=== PATIENT | male | born 2000 | race Caucasian/White ===

== ENCOUNTER 2023-06-23 11:14 | Emergency (ER) | payer BC, OTHER | END 2023-06-23 13:03 | disposition home or self-care (01) | LOC: MW.ED 11:14 | DX: S09.90XA Unspecified injury of head, initial encounter (principal); S16.1XXA Strain of muscle, fascia and tendon at neck level, initial encounter; V47.5XXA Car driver injured in collision with fixed or stationary object in traffic accident, initial encounter | CPT/HCPCS: 70450; 70450-26; 72125; 72125-26; 99282; 99284 ==

== ENCOUNTER 2023-11-19 20:57 | Emergency (ER) | payer BC, OTHER ==
[2023-11-19] MEDS ORDERED: Sodium Chloride 0.9% 2.5 ML Syringe FLUSH PRN (21:04)
[2023-11-19] MEDS ORDERED: Sodium Chloride 0.9% 10 ML Syringe FLUSH PRN (21:04)
[2023-11-19 21:22] LABS: BASOPHILS ABSOLUTE AUTO 0.05 K/uL (0.00-0.20); BASOPHILS PERCENT AUTO 0.6 % (0.0-1.0); EOSINOPHILS ABSOLUTE AUTO 0.29 K/uL (0.00-0.45); EOSINOPHILS PERCENT AUTO 3.4 % (0.0-6.0); HEMATOCRIT 42.7 % (42.0-52.0); HEMOGLOBIN 15.1 g/dL (14.0-18.0); IMMATURE GRAN ABSOLUTE AUTO 0.02 K/uL (0.00-0.05); IMMATURE GRAN PERCENT AUTO 0.2 % (0.0-0.4); LYMPHOCYTES ABSOLUTE AUTO 3.21 K/uL (1.00-4.80); LYMPHOCYTES PERCENT AUTO 37.1 % (24.0-44.0); MEAN CORPUSCULAR HGB CONC 35.4 g/dL (32.0-36.0); MEAN CORPUSCULAR VOLUME 82.1 fL (83.0-99.0); MEAN PLATELET VOLUME 9.5 fL (9.4-12.4); MONOCYTES ABSOLUTE AUTO 0.57 K/uL (0.00-0.80); MONOCYTES PERCENT AUTO 6.6 % (0.0-8.0); NEUTROPHILS ABSOLUTE AUTO 4.51 K/uL (1.80-7.70); NEUTROPHILS PERCENT AUTO 52.1 % (41.0-71.0); PLATELET COUNT,PLT 307 K/uL (150-400); WHITE BLOOD CELL COUNT,WBC 8.65 K/uL (3.9-11.3)
[2023-11-19] MEDS: Iopamidol 755 MG/ML 500 ML Multipack Bottle IVPUSH ONE (21:30)
[2023-11-19 21:36] LABS: INR 1.05 (0.86-1.11); PTT,PARTIAL THROMBOPLSTIN TIME 26.5 SEC (23.9-30.7)
[2023-11-19] MEDS: Acetaminophen 500 MG Tab PO ONE (21:39)
[2023-11-19 21:52] LABS: A/G RATIO 1.4 (0.9-1.6); ALANINE AMINOTRANSFERASE,ALT 28 IU/L (14-63); ALBUMIN 4.6 g/dL (3.4-5.0); ALKALINE PHOSPHATASE 99 U/L (46-116); ASPARTATE AMNIOTRANSFERASE,AST 30 IU/L (15-37); BILIRUBIN TOTAL 0.5 mg/dL (0.2-1.0); BLOOD UREA NITROGEN,BUN 16 mg/dL (7.0-18.0); CALCIUM 9.1 mg/dL (8.5-10.1); CARBON DIOXIDE,CO2 27.6 mmol/L (21.0-32.0); CHLORIDE,CL 104 mmol/L (98-107); CREATININE 1.1 mg/dL (0.8-1.3); EST CRCL DRUG DOSING (CG) 113.14 mL/min; ESTIMATED GFR 98 mL/min (>60); ETHANOL BLOOD MEDICAL <3 mg/dL; GLUCOSE RANDOM 91 mg/dL (74-106); POTASSIUM,K 3.8 mmol/L (3.5-5.1); PROTEIN TOTAL,TP 7.9 g/dL (6.4-8.2); SODIUM,NA 142 mmol/L (136-148)
[2023-11-19 22:19] LABS: APPEARANCE,URINE CLEAR; BILIRUBIN,URINE NEGATIVE (NEGATIVE); COLOR,URINE YELLOW; GLUCOSE,URINE NEGATIVE (NEGATIVE); KETONES,URINE NEGATIVE (NEGATIVE); LEUKOCYTE ESTERASE,URINE NEGATIVE (NEGATIVE); NITRITE,URINE NEGATIVE (NEGATIVE); OCCULT BLOOD,URINE NEGATIVE (NEGATIVE); PROTEIN,URINE NEGATIVE (NEGATIVE); UROBILINOGEN,URINE 0.2 EU/dL (<2.0)
== END 2023-11-19 22:48 | disposition home or self-care (01) ==
LOC: MW.ED 20:57
DX: S33.5XXA Sprain of ligaments of lumbar spine, initial encounter (principal); Z75.8 Other problems related to medical facilities and other health care; V59.69XA Unspecified occupant of pick-up truck or van injured in collision with other motor vehicles in traffic accident, initial encounter
CPT/HCPCS: 36415; 71046; 72131; 74177; 80053; 80307; 81003; 85025; 85610; 85730; 99284; Q9967